=== PATIENT | male | born 1945 | race Caucasian/White ===

== ENCOUNTER 2019-08-24 19:30 | Emergency (ER) | payer MEDICARE, SELFPAY ==
[2019-08-24 19:34] VITALS: BP 135/61; PULSE 83; RESP 18; O2SAT 91; BMI 38.0
--- NOTE | 2019-08-24 19:35 | ED_ITS ---
HPI - Seizure General: Chief Complaint: Seizure Stated Complaint: SEIZURE Time Seen by Provider: 08/24/19 19:34 Source: patient and EMS Mode of arrival: EMS Limitations: altered mental status History of Present Illness: HPI Narrative: 74-year-old male with a history of seizures that per EMS had a seizure today roughly 1 hour ago. Patient was initially postictal but is now waking up and able to answer some of my questions. He is slightly confused. He has had multiple seizures in the past. Denies any headache or fevers. MD complaint: seizure Onset (ago): hour(s) Description of Episode: loss of consciousness, tonic-clonic movement and bowel incontinence -: second(s) Witnessed: Yes - by Bystander Trauma: No Seizure History: Yes Place: Home Associated symptoms: Deny chest pain, chills or fever(s) Review of Systems Const: Denies: fever, chills, body aches or change in appetite Eyes: Denies: blurry vision or eye discomfort ENMT: Denies: throat pain or dental pain Card: Denies: chest pain Resp: Denies: shortness of breath GI: Denies: abdominal pain, nausea, vomiting or diarrhea : Denies: painful urination Musc: Denies: neck pain or back pain Skin/Breast: Denies: rash Neuro: Reports: seizure-like activity; Denies: headache Psych: Denies: depression Eleuterio/Lymph: Denies: easy bruising All/Imm: Denies: hives Physical Exam Const: COMMON NORMALS: no apparent distress HENMT: COMMON NORMALS: normocephalic and head/scalp atraumatic HEAD & SCALP: normocephalic and atraumatic Eye: COMMON NORMALS: PERRL and EOMs intact bilaterally PUPIL: Yes PERRL Neck/C-Spine: COMMON NORMALS: full ROM and supple Chest: COMMONS NORMALS: inspection of chest normal and palpation of chest normal Resp: COMMON NORMALS: normal respiratory effort, no retractions, no use of accessory muscles and clear to auscultation bilaterally AUSCULTATION: clear to auscultation bilaterally Cardio: COMMON NORMALS: regular rate, regular rhythm and no murmurs RATE: regular rate RHYTHM: regular rhythm GI: COMMON NORMALS: normal to inspection, nondistended, normoactive bowel sounds, soft to palpation, non-tender and no masses PALPATION: Yes soft Extremity: COMMON NORMALS: normal to inspection and full ROM Neuro: COMMON NORMALS: moves all extremities and no focal motor deficits Psych: COMMON NORMALS: mental status grossly normal, thought process normal and cooperative THOUGHT PROCESS: normal thought process Skin: COMMON NORMALS: no rashes or lesions noted and no wounds GENERAL SKIN EXAM: no rashes or lesions noted Course Vital Signs: Vital signs: Vital Signs Pulse Rate 83 08/24/19 19:34 Respiratory Rate 18 08/24/19 19:34 Blood Pressure 135/61 08/24/19 19:34 Pulse Oximetry 91 08/24/19 19:34 MDM - Seizure MDM Narrative: Medical decision making narrative: Patient presents here with a seizure and has had some altered neural status since the seizure. Patient CT head shows edema with frontal mass. I spoke to oncologist Dr. Madrid at [facility] as patient is in all his care at [facility]. Patient had have a CyberKnife procedure year and a half ago due to increasing mass that caused a seizure. Patient had been on Decadron recently as well and has been tapering off. After speaking to oncologist she recommended transfer there. Spoke to hospitalist at [facility] will transfer there for higher level of care for radiation oncology and also continue of care. Patient has been stable while in the ER here. Lab Data: Labs: Lab Results 08/24/19 08/24/19 08/24/19 Range/Units 19:50 19:50 19:56 WBC 7.7 (4.0-10.0) 10^3/ uL RBC 4.97 (4.1-5.3) 10^6/u L Hgb 15.0 (11.7-16.6) g/dL Hct 45.4 (42.0-52.0) % MCV 91.3 (80-94) fL MCH 30.2 (28.0-34.0) pg MCHC 33.0 (30.0-36.0) g/dL RDW 12.7 (12.1-15.1) % Plt Count 229 (130-400) 10^3/c mm MPV 9.9 (7.4-10.4) fL Neut % (Auto) 69.7 % Lymph % (Auto) 20.1 % Metcalfe % (Auto) 6.9 % Eos % (Auto) 1.6 % Baso % (Auto) 0.4 % Neut # (Auto) 5.3 (1.8-7.7) 10^3/u L Lymph # (Auto) 1.5 (0.8-4.8) 10^3/u L Metcalfe # (Auto) 0.5 (0.2-0.9) 10^3/u L Eos # (Auto) 0.1 (0.0-0.8) 10^3/u L Baso # (Auto) 0.0 (0.0-0.1) 10^3/u L Nucleated RBC % (a uto) 0 % Nucleated RBCs # 0.0 /100WBC Sodium 140 (136-145) mmol/L Potassium 4.0 (3.5-5.1) mmol/L Chloride 101 (98-107) mmol/L Carbon Dioxide 27 (22-29) mmol/L Anion Gap 16.0 (5-19) BUN 21 (8-23) mg/dL Creatinine 1.0 (0.7-1.2) mg/dL Glucose 242 H (65-115) mg/dL POC Glucose 214 (70-110) mg/dL Calculated Osmolal ity 295 (285-295) mOsm/k g Calcium 9.4 (8.5-10.5) mg/dL Imaging Data^: CT Head: Attestation: I personally reviewed and interpreted this imaging study as follows: Radiologist's impression: [facility] [place] [address] CT Scan Report Signed Patient: DANELLE LANGSTON Unit #: [id number] : 1945 Age/Sex: 74 / M ADM Date: 08/24/19 Loc: ER Room/Bed: Attending Dr: Ordering Provider/Ordering MD: Courtney Jaimes MD Date of Service: 08/24/19 Procedure(s): CT head wo con* [id number] Accession Number(s): [id number] Report Number: [id number] PROCEDURE INFORMATION: Exam: CT Head Without Contrast Exam date and time: 08/24/2019 7:43 PM Age: 74 years old Clinical indication: Other: Seizure; Patient HX: Unable to obtain HX TECHNIQUE: Imaging protocol: Computed tomography of the head without contrast. Total DLP: 739.57 mGy-cm Radiation optimization: All CT scans at this facility use at least one of these dose optimization techniques: automated exposure control; mA and/or kV adjustment per patient size (includes targeted exams where dose is matched to clinical indication); or iterative reconstruction. COMPARISON: No relevant prior studies available. FINDINGS: Brain: There is a large 3 x 5 x 5 cm sized area of vasogenic edema in the right frontal lobe with mass effect upon the frontal horn of the right lateral ventricle. This is worrisome for the presence of an underlying mass or malignancy. There is a 2nd smaller area of vasogenic edema in the left posterior frontal region such as an image number 28 which is worrisome for a 2nd intracranial lesion. Findings are consistent with brain metastasis. Patient reportedly has a history of brain metastasis and lung cancer. Comparison with prior outside examinations is recommended. There is no intracranial hemorrhage. Midline shift: There is no shift of midline structures. Ventricles: Normal. No ventriculomegaly. Bones/joints: Unremarkable. No acute fracture. Sinuses: Visualized sinuses are unremarkable. No fluid levels. Mastoid air cells: Visualized mastoid air cells are well aerated. Soft tissues: Unremarkable. CT/CT head wo con* [id number] IMPRESSION: Findings are worrisome for brain metastasis. COMMENTS: THIS REPORT CONTAINS FINDINGS THAT MAY BE CRITICAL TO PATIENT CARE. The findings were verbally communicated via telephone conference with courtney Jaimes at 8:22 PM CDT on 08/24/2019. The findings were acknowledged and understood. Discharge Plan Discharge Patient Disposition: Xfer Other Clinical Impression: Generalized seizure, Frontal mass of brain Condition: Stable Discharge Orders: Transfer Out of Facility (Order); Ordered 08/24/19 Ordered By: Courtney Jaimes Referrals: Leonardo Naranjo [Primary Care Provider] - Coding Level of Care Code ED Clinic Coordinator for Chg Fwd Exam Comprehensive
--- NOTE | 2019-08-24 19:59 | PC.NURSE ---
accucheck 214
[2019-08-24 20:01] LABS: Glucose Point of Care 214 mg/dL (70-110)
--- NOTE | 2019-08-24 20:27 | PC.NURSE ---
Contact info: : Angelique [phone] Son: Ric [phone]
[2019-08-24 20:35] LABS: Blood Urea Nitrogen 21 mg/dL (8-23); Calcium 9.4 mg/dL (8.5-10.5); Carbon Dioxide 27 mmol/L (22-29); Chloride 101 mmol/L (98-107); Glucose 242 mg/dL (65-115); Osmolality Calculated 295 mOsm/kg (285-295); Sodium 140 mmol/L (136-145)
[2019-08-24] MEDS: dexamethasone 4 mg Tablet PO (21:21)
[2019-08-24 21:44] LABS: Basophils % 0.4 %; Eosinophils # 0.1 10^3/uL (0.0-0.8); Eosinophils % 1.6 %; Hematocrit 45.4 % (42.0-52.0); Lymphocytes # 1.5 10^3/uL (0.8-4.8); Lymphocytes % 20.1 %; Mean Corpuscular Hemoglobin 30.2 pg (28.0-34.0); Mean Corpuscular Volume 91.3 fL (80-94); Mean Platelet Volume 9.9 fL (7.4-10.4); Monocytes # 0.5 10^3/uL (0.2-0.9); Monocytes % 6.9 %; Neutrophils # 5.3 10^3/uL (1.8-7.7); Neutrophils % 69.7 %; Nucleated Red Blood Cells % 0 %; Platelet Count 229 10^3/cmm (130-400); Red Blood Count 4.97 10^6/uL (4.1-5.3); Red Cell Distribution Width 12.7 % (12.1-15.1); White Blood Count 7.7 10^3/uL (4.0-10.0)
[2019-08-24 22:37] LABS: Bilirubin Urine Neg (NEGATIVE); Blood Urine Neg (Negative); Glucose Urine UA 4+ (Normal); Ketones Urine Negative (Negative); Leukocyte Esterase Urine Negative (Negative); Nitrate Urine Negative (Negative); Protein Urine 1+ (Negative); Specific Gravity, Urine 1.015 (1.005-1.030); Urine Appearance Clear (CLEAR); Urine Color Yellow (Yellow); Urobilinogen Urine Norm (Negative); pH Urine 6 (5-7)
[2019-08-24 22:41] LABS: Add Urine Culture? No; Bacteria Urine TRACE; RBC Urine 0-4 /hpf (0-2); Sperm Urine 1+; Squamous Epithelial Cell Urine 0-4 (0-5)
--- NOTE | 2019-08-24 23:05 | PC.NURSE ---
Pt placed in paper scrubs and bed changed after urine incontinence
--- NOTE | 2019-08-25 00:08 | PC.NURSE ---
Report given to Wandy Huang RN @ [facility]
--- NOTE | 2019-08-25 00:09 | PC.NURSE ---
Pt's informed of pt's transfer infomation
[2019-08-25 00:52] VITALS: BP 144/66; PULSE 89; RESP 16; O2SAT 95
[2019-08-25] MEDS: LORazepam 2 mg/mL INJ 1 mL 1 MG IVP (00:55)
--- NOTE | 2019-08-25 00:56 | PC.NURSE ---
ativan not administered due to pt mentation improving and no seizure activity. Dr Shane hilton the non adm
--- NOTE | 2019-08-25 01:02 | PC.NURSE ---
Rn reviewed and agrees with assessment
== END 2019-08-25 00:52 | disposition other institution (70) ==
PROVIDERS: Emergency Provider Emergency Medicine; PCP Family Medicine
DX: R56.9 Unspecified convulsions (principal); G93.89 Other specified disorders of brain
CPT/HCPCS: 12345; 36416; 70450; 80048; 81001; 82962; 85025; 99283; J2060; J8540